=== PATIENT | male | born 1950 | race Caucasian/White ===

== ENCOUNTER → 2016-11-02 | Outpatient (CLI) | payer OTHER, BC | LOC: MOB LAB 12:53 | DX: H65.03 Acute serous otitis media, bilateral (principal); J02.9 Acute pharyngitis, unspecified; R05 Cough; Z87.891 Personal history of nicotine dependence | CPT/HCPCS: 87880; 99213; G0463 ==

== ENCOUNTER → 2016-11-12 | Outpatient (CLI) | payer OTHER, BC ==
[2016-11-12 09:41] LABS: HEMOGLOBIN A1C 8.52 % (4.2-6.0); MEAN BLOOD GLUCOSE (CALC) 197.716 mg/dL
[2016-11-12 09:55] LABS: CREATININE, URINE 168.4 MG/DL (15-500)
== END ==
LOC: LAB 09:12
PROVIDERS: ATTEND Internal Medicine
DX: E11.9 Type 2 diabetes mellitus without complications (principal); Z79.4 Long term (current) use of insulin
CPT/HCPCS: 36415; 82043; 83036

== ENCOUNTER 2016-12-17 09:57 | Observation (INO) | payer OTHER, BC ==
[2016-12-17] MEDS ORDERED: Sodium Chloride 0.9% 1,000 ML PRIMARY IV ONE (10:10)
[2016-12-17] MEDS ORDERED: KETOROLAC 15 MG/1 ML VIAL IVP ONE (10:10)
[2016-12-17] MEDS ORDERED: MORPHINE SULFATE 4 MG/1 ML IVP ONE (10:11)
[2016-12-17] MEDS: NORMAL SALINE 10 ML SYRINGE FLUSH IVP PRN ×2 (10:20→10:29)
--- NOTE | 2016-12-17 10:27 | PDOC ---
Fall HPI - General Chief Complaint: Fall Stated Complaint: FALL 2WEEKS AFTER LUMBAR FUSION Date Seen by Provider: 12/17/16 Time Seen by Provider: 10:10 Source: POSITIVE: Patient, Spouse Exam Limitations: POSITIVE: No limitations Nurse's Notes Reviewed & Considered: Yes - History of Present Illness Initial Comments: The patient is a 66-year-old male who presents to the emergency department with worsening low back pain. He underwent a lumbar fusion surgery per Dr. Woods at [facility] in [place] 2 weeks ago. This was his third lumbar surgery. He was walking with a walker yesterday when he lost his footing and fell landing on his back. Since then he has had increase in localized low back pain. He denies any radiation of pain into his legs, numbness or weakness and he states that he is urinating well "like a racehorse" . He denies any fevers or chills or any other associated symptoms. He has taken 20 mg of oxycodone this morning as well as Valium and his regular piroxicam without any significant improvement in pain. His pain is increased with movement. He denies hitting his head and denies loss of consciousness associated with the fall. He did scrape his elbow however denies any significant elbow pain. He has no other associated symptoms or complaints. Have you received a tetanus shot in the past 10 years?: Unknown - Patient Home Medications Home Medications: Home Medications Aspirin [Ligia Aspirin] 1 tab ORAL QD tab 02/27/11 [place]-3 Fatty Acids/Fish Oil [Fish Oil 1,000 Mg Capsule] 1 each PO BID 04/30/12 Amlodipine Besylate 1 tab PO QHS #90 tab 02/01/16 Blood Sugar Diagnostic [Freestyle Lite Strips] 1 each IN TID #100 strip Fenofibrate [Tricor] 1 tab ORAL QD #90 tab 02/01/16 Hydrochlorothiazide 1 tab ORAL QD #90 tab 02/01/16 Lisinopril 2 tab ORAL QD #180 tab 02/01/16 Ezetimibe [Zetia] 10 mg ORAL QD #90 tab 02/15/16 Metformin HCl 1 tab PO BID #60 tab 07/30/16 Syringe & Needle,Insulin,1 ml [Insulin Syringe] 1 each [facility] #90 each 08/01/16 Insulin Aspart [Novolog Flexpen] 8 - 20 unit SUBCUT AC #4 unit 08/20/16 Insulin Detemir [Levemir Flextouch] 60 unit SQ BIDBRS #6 unit 08/20/16 Pantoprazole Sodium 1 tab PO BID #180 tab 09/02/16 Metoprolol Tartrate 1 tab ORAL BID #90 tab 11/20/16 Diazepam [Valium] 5 mg PO TID PRN 12/17/16 Oxycodone HCl/Acetaminophen [Oxycodone-Acetaminophen 10-325] 1 - 2 each PO Q6H PRN PRN 12/17/16 Rosuvastatin Calcium 40 mg PO BEDTIME 12/17/16 - Patient Allergies Allergies/Adverse Reactions: Allergies Allergy/AdvReac Type Severity Reaction Status Date / Time No Known Allergies Allergy Verified 12/17/16 15:01 Past Medical History - heen HEENT History: Denies History, Cataracts, Dentures/Partials Additional HEENT History: DENTURES UPPER AND LOWER Cardiovascular History: Hypertension, CHF, CAD, PVD, Arrhythmia, Pacemaker, Hyperlipidemia Additional Cardiovasular History: HEART FAILURE, E.F. 43% Respiratory History: Denies History Gastrointestinal History: GERD Additional Gastrointestinal History: Hx of appendectomy Additional Genitourinary History: URGENCY Endocrine History: Type 2 Diabetes (insulin) Musculoskeletal History: Arthritis Prosthesis or Implant: No (BACK FUSION/CHEST) Additional Musculoskeletal History: LUMBAR SPONDYLOSIS Additional Neurological History: CLUSTER HEADACHES WHEN YOUNGER Blood Disorders: Denies History Psychiatric History: Denies History History of Sexually Transmitted Diseases: No Cancer History: Denies History History of MDRO: No History of Other Communicable Diseases: No Alcohol Use: Occasionally Substance Use Type: None Previous Surgical History: Yes Type / Date of Surgery: CORONARY ANGIOGRAM/ CABG/ PACEMAKER/ LUMBAR FUSION X 2 Anesthesia Reactions: No Malignant Hyperthermia: No Significant Family History: Asthma, Diabetes, Hypertension, Renal disease, Vascular disease Past Medical History Reviewed: Reviewed - No Changes ROS - Limitations ROS Limitations: No Limitations Constitution: DENIES: Chills, Fever Cardiovascular: REPORTS: Denies Cardiac Symptoms Respiratory: REPORTS: Denies Resp Symptoms Neurological: REPORTS: Denies Neuro Symptoms. DENIES: Numbness, Weakness Gastrointestinal: REPORTS: Denies GI Symptoms Fall Physical Exam - General Appearance General Appearance: POSITIVE: Alert, Cooperative, No Acute Distress - HEENT HEENT: POSITIVE: Head Inspection Nml - Neck Neck: POSITIVE: Non Tender, Painless ROM, Trachea Midline - Respiratory / CVS Respiratory / CVS: POSITIVE: Chest Non Tender, Breath Sounds Normal, No Respiratory Distress, Heart Sounds Normal, Regular Rate/Rhythm - Abdomen Abdomen: Soft: (All Quadrants), Denies Tenderness: (All Quadrants), No Distention: (All Quadrants) - Skin Skin: POSITIVE: Intact - Back Back: POSITIVE: Other (Examination of his low back reveals a large midline incision with anthony and sutures still in place, there is no drainage from the wound, no surrounding swelling or erythema) - Extremities Extremity Assessment: Normal ROM: (ALL), No Edema: (ALL) Fall Progress - Results Reviewed by me Xrays/CTs/US Reviewed by me: Yes Discussed with Radiologist: Yes Radiology Findings: X-ray of the lumbar spine reveals hardware from recent fusion that appears to be in good position, no acute fracture per radiologist. Lab Results Reviewed: Yes Lab Results:: Laboratory Results 12/17/16 Range/Units 10:26 WBC 6.48 (4.8-10.8) 10^3/uL RBC 3.81 L (4.70-6.10) 10^6/uL Hgb 11.0 L (14.0-18.0) g/dL Hct 32.1 L (42.0-52.0) % MCV 84.3 (80-90) FL MCH 28.9 (27-31) PG MCHC 34.3 (33-37) g/dL RDW Std Deviation 39.8 (39-50) fL RDW Coeff of Monica 13.3 (11.5-14.5) % Plt Count 248 (140-350) 10*3/uL MPV 8.5 (7.4-12.2) FL Immature Gran % (Auto) 0.3 (0-5) % Neut % (Auto) 75.1 (50-80) % Lymph % (Auto) 15.3 (10-50) % Sutton % (Auto) 7.4 (5-15) % Eos % (Auto) 1.7 (0-8) % Baso % (Auto) 0.2 (0-1) % Immature Gran # (Auto) 0.02 10*3/UL Neut # (Auto) 4.87 10*3/UL Lymph # (Auto) 0.99 10*3/uL Sutton # (Auto) 0.48 (0.3-0.8) 10*3/UL Eos # (Auto) 0.11 10*3/UL Baso # (Auto) 0.01 10*3/UL WBC Morphology Comment Normal morphology (NORM) Plt Morphology Comment Normal morphology (NORM) RBC Morph Comment Normal morphology (NORM) Sodium 138 (135-145) meq/L Potassium 4.3 (3.8-5.2) meq/L Chloride 103 (98-112) meq/L Carbon Dioxide 21 L (23-33) meq/L Anion Gap 14 (5-20) BUN 23 H (7-22) mg/dL Creatinine 1.2 (0.70-1.50) mg/dL Estimated GFR > 60 (>60 ml/min/1.73m(2)) BUN/Creatinine Ratio 19.16 (6-20) Glucose 271 H (78-110) mg/dL Calculated Osmolality 299.0 H (267-292) mOsm/kg Calcium 9.3 (8.7-10.7) mg/dL Total Bilirubin 0.7 (0.3-1.2) mg/dL AST 22 (21-57) IU/L ALT 31 (21-72) IU/L Alkaline Phosphatase 86 (38-126) IU/L C-Reactive Protein 3.5 H (0.0-0.9) mg/dL Total Protein 6.5 (6.1-8.0) g/dL Albumin 3.8 (3.5-4.8) g/dL Globulin 2.8 (2.50-4.10) g/dL Albumin/Globulin Ratio 1.30 (1.3-2.0) mg/g - Patient's Progress MDM / ED Course: An IV was established and the patient did receive morphine 4 mg IV, Toradol 15 mg IV and Zofran 4 mg IV for pain. X-rays of the lumbar spine was obtained to check alignment of his recent fusion. This did not reveal any evidence of acute fracture and revealed normal alignment of the hardware. The patient had minimal pain relief with administration of medications however did drop his oxygen saturations and required to be placed on O2 per nasal cannula. I did attempt to contact Dr. Woods who is the neurosurgeon who performed his lumbar fusion. I was able to talk with his physician assistant cook Ricardo. She recommended pain control and stated that the patient does have a follow-up appointment on Friday to see Dr. Woods. I instructed her that I did not feel that he was appropriate to go home given his current degree of pain and his inability to stand. His is also uncomfortable taking him home. She stated it would be reasonable to have him admitted for pain control. I subsequently spoke with Dr. Rose and he agreed to admit the patient. - Consult Counseled: POSITIVE: Patient, Family, RE: Lab Results, RE: Radiology Results, RE : DX Patient Care Time - Estimated PCT Patient Care Time (In Minutes): 40 Vital Signs - Recent Vital Signs Vital Signs: Vital Signs (Last 8 hours) Temp Pulse Pulse Resp BP BP BP 12/17/16 15:06 75 12/17/16 15:05 97.7 F 75 20 146/78 12/17/16 14:44 97.9 F 78 16 131/79 12/17/16 12:25 76 12/17/16 11:25 96/60 12/17/16 11:20 83 92/62 12/17/16 10:50 12/17/16 10:40 12/17/16 10:05 98.2 F 100 16 164/97 Pulse Ox 12/17/16 15:06 12/17/16 15:05 90 12/17/16 14:44 93 12/17/16 12:25 96 12/17/16 11:25 12/17/16 11:20 96 12/17/16 10:50 92 12/17/16 10:40 83 12/17/16 10:05 93 - VS Reviewed Vital Signs Reviewed: Yes Discharge Clinical Impression: Intractable back pain, Status post lumbar spinal fusion Discharge Disposition: Admit to Observation Condition: Stable
[2016-12-17 10:29] LABS: BASOPHILS # (AUTO) 0.01 10*3/UL; BASOPHILS % (AUTO) 0.2 % (0-1); EOSINOPHILS # (AUTO) 0.11 10*3/UL; EOSINOPHILS % (AUTO) 1.7 % (0-8); HEMATOCRIT 32.1 % (42.0-52.0); LYMPHOCYTES # (AUTO) 0.99 10*3/uL; MEAN CORPUSCULAR HEMOGLOBIN 28.9 PG (27-31); MEAN CORPUSCULAR HGB CONC 34.3 g/dL (33-37); MEAN CORPUSCULAR VOLUME 84.3 FL (80-90); MEAN PLATELET VOLUME 8.5 FL (7.4-12.2); MONOCYTES # (AUTO) 0.48 10*3/UL (0.3-0.8); MONOCYTES % (AUTO) 7.4 % (5-15); NEUTROPHILS # (AUTO) 4.87 10*3/UL; NEUTROPHILS % (AUTO) 75.1 % (50-80); RED BLOOD COUNT 3.81 10^6/uL (4.70-6.10)
[2016-12-17] MEDS: ONDANSETRON 4 MG/2 ML VIAL IVP ONE (10:29)
[2016-12-17 10:30] LABS: PLATELET MORPHOLOGY COMMENT NORMAL MORPHOLOGY (NORM); RBC MORPHOLOGY COMMENT NORMAL MORPHOLOGY (NORM); WBC MORPHOLOGY COMMENT NORMAL MORPHOLOGY (NORM)
[2016-12-17 10:41] LABS: BLOOD UREA NITROGEN 23 mg/dL (7-22); BUN/CREATININE RATIO 19.16 (6-20); C-REACTIVE PROTEIN 3.5 mg/dL (0.0-0.9); CALCIUM 9.3 mg/dL (8.7-10.7); EST GLOMERULAR FILTRATION > 60 (>60 ml/min/1.73m(2)); SERUM ALBUMIN 3.8 g/dL (3.5-4.8)
--- NOTE | 2016-12-17 11:55 | DI ---
LUMBAR SPINE SERIES, 12/17/2016 10:11 AM: Clinical History: Injury. The patient fell. The patient is status post recent lumbar fusion. Previous Exam: 03/07/2016. AP and lateral views are submitted. The vertebral bodies are of normal height and size. Since the pre vious exam, the patient has undergone an L5 laminectomy with anterior and posterior fusions at L5-S1 as well as repeat anterior fusion at L4-5. There is an L4 laminectomy. Posterior fusions are accompli shed with metallic struts that are transfixed with pedicle screws between L4 and S1 on the right side and with pedicle screws between L5 and S1 on the left side. No acute fractures are identified. On th e lateral view, the cages at L4-5 and L5-S1 are in the appropriate position. The remaining lumbar dis c spaces are of normal height. The remaining pedicles and posterior elements are unremarkable. Both S I joints are normal. The abdominal aorta is heavily calcified but has a normal caliber. Vascular sten ts are present in the left common iliac artery. Readin. No acute fractures are identified. The patient is status post recent repeat lumbar surgery at the L4-5 level and new surgery at L5-S1 and skin anthony are still present at the surgical site. The ant erior bone graft cages at L4-5 and L5-S1 have a normal position on the lateral projection. The patien t is status post L4 and L5 laminectomies. Pedicle screws and metallic struts are in the appropriate p osition. 2. The remainder of the examination is normal.
--- NOTE | 2016-12-17 13:57 | PDOC ---
History and Physical - History of Present Illness Date and Time of Service: 12/17/2016 Chief Complaint: Worsening low back pain after a fall History of Present Illness: This is a 66 years old male with medical history significant for history of diabetes, hypertension, congestive heart failure with previous AICD insertion, coronary artery disease with previous CABG he had 3 previous back surgeries, the last one about 2 weeks ago at [facility] in [place]. He was walking yesterday with a walker and he lost his footing and fell landing on his buttock. He said he was able to get up with help but had worsening pain especially today and because of that they brought him to the hospital. The pain felt in the same area but it's more intense this morning. There is no significant radiations. Because of the pain and decreased mobility he was brought to the hospital and in the ER he was the given pain medication that lowered his pain a little bit had an x-ray showed no evidence of fracture this was discussed with the PA for the orthopedic surgeon and because his pain is uncontrolled and restricted mobility he was admitted . He did have a slight drop in his oxygen after they gave him the morphine. He did mention that he's been constipated and last time he had a bowel movement was Friday. He has some incontinence of urine since the surgery. Past Medical History Medical History: 1. Diabetes. 2. Hypertension. 3. Coronary artery disease status post CABG in 2001. 4. Hyperlipidemia. 5. Peripheral vascular disease. 6. Obstructive sleep apnea. 7. Heart failure ejection fraction of 43% 2003. 8. History of pacemaker AICD insertion before Surgical History: 1. CABG 2001. 2. Vertebral fusion. 3. Pacemaker/AICD Family History: Reviewed an Not Pertinent Past Social History: Used to smoke quit many years ago, occaionally drink, no drugs. Lives with . Tobacco Use: Former Smoker Substance Use Type: None Alcohol Use: Occasionally Medication / Allergies Home Medications: Home Medications Medication Instructions Recorded Confirmed Type Aspirin [Ligia Aspirin] 1 tab ORAL QD tab 02/27/11 12/17/16 History [place]-3 Fatty Acids/Fish Oil [Fish 1 each PO BID 04/30/12 12/17/16 History Oil 1,000 Mg Capsule] Amlodipine Besylate 1 tab PO QHS #90 tab 02/01/16 12/17/16 Clinic Blood Sugar Diagnostic [Freestyle 1 each IN TID #100 strip 02/01/16 12/17/16 Clinic Lite Strips] Fenofibrate [Tricor] 1 tab ORAL QD #90 tab 02/01/16 12/17/16 Clinic Hydrochlorothiazide 1 tab ORAL QD #90 tab 02/01/16 12/17/16 Clinic Lisinopril 2 tab ORAL QD #180 tab 02/01/16 12/17/16 Clinic Ezetimibe [Zetia] 10 mg ORAL QD #90 tab 02/15/16 12/17/16 Clinic Metformin HCl 1 tab PO BID #60 tab 07/30/16 12/17/16 Clinic Syringe & Needle,Insulin,1 ml 1 each [facility] AC #90 each 08/01/16 12/17/16 Clinic [Insulin Syringe] Insulin Aspart [Novolog Flexpen] 8 - 20 unit SUBCUT AC #4 unit 08/20/16 Clinic Insulin Detemir [Levemir Flextouch] 60 unit SQ BIDBRS #6 unit 08/20/16 12/17/16 Clinic Pantoprazole Sodium 1 tab PO BID #180 tab 09/02/16 12/17/16 Clinic Metoprolol Tartrate 1 tab ORAL BID #90 tab 11/20/16 12/17/16 Clinic Diazepam [Valium] 5 mg PO TID PRN 12/17/16 12/17/16 History Oxycodone HCl/Acetaminophen 1 - 2 each PO Q6H PRN PRN 12/17/16 12/17/16 History [Oxycodone-Acetaminophen 10-325] Rosuvastatin Calcium 40 mg PO BEDTIME 12/17/16 12/17/16 History Allergies/Adverse Reactions: Allergies Allergy/AdvReac Type Severity Reaction Status Date / Time No Known Allergies Allergy Verified 12/18/16 06:35 Review of Systems - Review of Systems All Systems: Reviewed & No Additional Complaints Except as Stated Exam - General General Appearance: POSITIVE: No Acute Distress, Cooperative, Thin, Obese - Head Head Exam: POSITIVE: Normal Inspection, Atraumatic - Eye Eye Exam: POSITIVE: Normal Appearance - ENT ENT Exam: POSITIVE: Normal Exam - Neck Neck Exam: POSITIVE: Normal Inspection - Respiratory Respiratory Exam: POSITIVE: Clear to Auscultation - Bilaterally - Cardiovascular Cardiovascular Exam: POSITIVE: RRR - GI/Abdominal GI/Abdominal Exam: POSITIVE: Normal Bowel Sounds, Non Tender, Non Distended, Soft - Rectal Rectal Exam: POSITIVE: Deferred - External Exam: POSITIVE: Deferred - Extremities Extremities Exam: POSITIVE: Normal Inspection - Back Additional Back Exam Details: The wound of his back looks clean - Neurological Neurological Exam: POSITIVE: Alert, Oriented x 3, CN II-XII Intact Additional Neurological Exam Details: motor strength assessment is restricted because of pain - Psychiatric Psychiatric Exam: POSITIVE: Normal Affect - Integumentary Integumentary Exam: POSITIVE: Normal Color Results - Labs CBC and BMP: 12/17/16 10:26 12/17/16 10:26 - Imaging Status: Report Reviewed by Me (X ray no fracture) Assessment and Plan - Patient Problems (1) Back pain Current Visit: Yes Status: Acute Comment: We'll put him on pain medications, will ask for PT and OT evaluation the morning. The ER physician tried to get hold of his surgeon but could not get hold of him we'll try to see if we can get hold of him and see if he suggest more testing. (2) Diabetes Current Visit: Yes Status: Acute Comment: Will puts him on the his usual medications and on sliding scale (3) Coronary artery disease Current Visit: Yes Status: Acute Comment: Continue previous medications (4) Hypercholesterolemia Current Visit: Yes Status: Acute Comment: Same med (5) DVT prophylaxis Current Visit: Yes Status: Acute Comment: will put him on SCD boots for now Photo / Body Diagrams - Uploaded Photos Uploaded Photos:
[2016-12-17] MEDS ORDERED: NORMAL SALINE 10 ML SYRINGE FLUSH IVP PRN (15:29)
[2016-12-17] MEDS ORDERED: LIDOCAINE W/ SODIUM BICARB 0.5 ML SYR SUBD PRN (15:29)
[2016-12-17] MEDS ORDERED: MORPHINE SULFATE 2 MG/1 ML IVP PRN (15:42)
[2016-12-17] MEDS: oxyCODONE/APAP 10/325 Tab 1 EACH TAB PO PRN ×2 (16:59→20:40)
[2016-12-17] MEDS: Insulin Lispro Flexpen 300 UNIT/3 ML INSULN.PEN SUBCUT SCH (16:59)
[2016-12-17] MEDS: DIAZEPAM 5 MG TABLET PO PRN (17:00)
[2016-12-17] MEDS: metFORMIN 500 MG TABLET PO SCH (20:54)
[2016-12-17] MEDS: PANTOPRAZOLE 40 MG TABLET PO SCH (20:54)
[2016-12-17] MEDS: Rosuvastatin Tab 20 MG TAB PO SCH (20:54)
[2016-12-17] MEDS: DOCUSATE 100 MG CAPSULE PO SCH (20:55)
[2016-12-17] MEDS: Metoprolol TARTRATE Tab 50 MG TAB PO SCH (20:55)
[2016-12-17] MEDS: Insulin Detemir 300unit/3ml Flexpen SUBCUT SCH (20:55)
[2016-12-18] MEDS: DIAZEPAM 5 MG TABLET PO PRN (02:17)
[2016-12-18] MEDS: oxyCODONE/APAP 10/325 Tab 1 EACH TAB PO PRN ×4 (02:17→20:22)
[2016-12-18] MEDS: Insulin Lispro Flexpen 300 UNIT/3 ML INSULN.PEN SUBCUT SCH ×3 (09:05→17:36)
[2016-12-18] MEDS: ASPIRIN 325 MG TABLET PO SCH (09:06)
[2016-12-18] MEDS: metFORMIN 500 MG TABLET PO SCH ×2 (09:06→20:21)
[2016-12-18] MEDS: PANTOPRAZOLE 40 MG TABLET PO SCH ×2 (09:06→20:23)
[2016-12-18] MEDS: FENOFIBRATE 145 MG TABLET PO SCH (09:06)
[2016-12-18] MEDS: Metoprolol TARTRATE Tab 50 MG TAB PO SCH ×2 (09:06→20:22)
[2016-12-18] MEDS: LISINOPRIL 20 MG TABLET PO SCH (09:06)
[2016-12-18] MEDS: DOCUSATE 100 MG CAPSULE PO SCH ×2 (09:07→20:22)
[2016-12-18] MEDS: HYDROCHLOROTHIAZIDE 25 MG TABLET PO SCH (09:07)
[2016-12-18] MEDS: EZETIMIBE 10 MG TABLET PO SCH (09:07)
[2016-12-18] MEDS: POLYETHYLENE GLYCOL 3350 17 GM POWDER PO SCH (09:07)
[2016-12-18] MEDS: Insulin Detemir 300unit/3ml Flexpen SUBCUT SCH ×2 (09:08→20:40)
--- NOTE | 2016-12-18 09:26 | PTI REPORT ---
Thank you for the referral of Bj Mo. He was seen on 12/17/16 for an inpatient evaluation secondary to back pain. SUBJECTIVE: The patient is a 66-year-old male who was admitted to the hospital for pain control. He is two weeks post op low back procedure from [facility]. The exact type of procedure is unknown and was unable to be found in the records currently available. We will try to find out more information from [place]. The patient is complaining of low back pain and left hip and leg pain after his fall. He states he was on his way to the bathroom with his walker when it slipped out from under him and he landed on his butt. He states he has been having increased pain since that period of time. The patient is currently on pain medication so some of his responses probably are delayed and biased with his medicine. The patient states he has a back brace at home and a walker at home; neither are present in his room. PAST MEDICAL HISTORY: Past medical history can be found in the patient's medical record. OBJECTIVE FINDINGS: General observations: The patient's incisions are benign. There are anthony and sutures present with no drainage at this point. Range of motion/Strength: The patient demonstrates full active range of motion of both shoulders with 5/5 for strength. The patient demonstrates right lower extremity recreating back pain with any kind of hip movements. Knee and ankle range of motion are within normal limits. Left lower extremity had a positive leg raise at approximately 45 degrees and active movements of that lower extremity did increase his low back pain moderately. Bed mobility: With enough time, the patient was able to transfer from supine to seated with minimal assist of one. Transfers: The patient was able to transfer from sit to stand with the use of a walker, which we will provide. ASSESSMENT: The patient has increased low back pain from a fall. He is two weeks post op a large back surgery, a possible fusion or other procedure, which is unknown to us at this point. He has been admitted for pain control. He obviously needs help with transfers, ambulation activities, self help skills, and mobility. He is a high risk for falling. Short-Term Goals: To be met by discharge from inpatient: Patient will have a pain level less than or equal to 5/10 with activity. Patient will be able to perform all bed mobility and transfers independently and safely. Patient will be able to ambulate 200 feet with least restrictive assistive device. Long-Term Goals: To be met following discharge from inpatient: Patient will be able to return home, independent and safe with all ADLs and functional transfers. TREATMENT PLAN: Patient will be seen B.I.D during the week and one time per day over the weekend as an inpatient for pain control modalities, transfer training, and strengthening of the lower extremities and upper extremities. INITIAL TREATMENT: Treatment today consisted of the initial evaluation activities only. ABRAHAM
--- NOTE | 2016-12-18 14:32 | PDOC(PROG) ---
Interval History: Patient still in pretty moderate to severe pain in his lower back and both legs. Apparently he is been incontinent of urine since yesterday according to the patient and nurse x-ray did not show any abnormalities he has some numbness in both of his legs posteriorly on physical exam he does feel me touching the posterior buttocks lower legs and legs Objective : Data - Labs CBC and BMP: 12/17/16 10:26 12/17/16 10:26 Objective : Exam - General General Appearance: Cooperative - Respiratory Respiratory Exam: Clear to Auscultation - Bilaterally, Breathing Non Labored, Normal To Percussion - Cardiovascular Cardiovascular Exam: RRR, No Murmur, No Clicks, No Gallops - GI/Abdominal GI/Abdominal Exam: Normal Bowel Sounds, Non Tender, Non Distended, Soft - Additional Exam Details: Patient has good sensation and posterior buttocks legs and in front of his legs - Neurological Neurological Exam: Alert, Oriented x 3, Moves All Extremities Equally - Psychiatric Psychiatric Exam: Normal Affect Assessment and Plan - Patient Problems (1) Urinary incontinence Current Visit: Yes Status: Acute Comment: Good sensation on physical exam I'll order a CT scan of his thoracic and lumbar spine make sure there is no hematomas or abscesses compressing depending on the results we'll contact the neurosurgeon that operated on him 2 weeks ago to share my information continue PTOT and pain management (2) Back pain Current Visit: Yes Status: Acute (3) Intractable back pain Current Visit: Yes Status: Acute Comment: IV narcotics Photo / Body Diagrams - Uploaded Photos Uploaded Photos:
--- NOTE | 2016-12-18 16:29 | PT.PROG ---
Progress Note Progress Note: S. Patient stated that he is in a lot of pain this morning and would like to get back in bed. O. Patient transferred from sit to stand then ambulated 10 feet to the bed where he was performed stand to supine transfer with log roll. Patient was left with alarm and call light. A. Patient required max verbal cues to use the walker properly and to stand tall during ambulation. Patient appeared to be struggling with weakness in his legs and his knees appeared to give out on him during ambulation. Patient required mod assist with transfers and ambulation. Patient would continue to benefit from skilled therapy to increase strength, mobility and endurance. P. Continue POC.
--- NOTE | 2016-12-18 16:35 | PT.PROG ---
Progress Note Progress Note: S. Patient stated that he is feeling better this afternoon and would like to go to therapy. O. Patient ambulated 15 feet to the wheelchair and was wheeled to the therapy gym where he ambulated 5 feet and transferred to the mat table where he had heat to his back x 25 minutes, then performed supine exercises in the form of; trunk rotations, pelvic tilts, heel slides,quad sets. Patient performed sit to stands x 3 then ambulated 20 feet to the wheelchair and was returned to his room where he was left in bed with alarm and call light. A. Patient continues to struggle with weakness, and requires min-mod assist with transfers and ambulation. He continues to require verbal cues to use the walker properly. Patient would continue to benefit from skilled therapy at this time. P. Continue POC.
[2016-12-18] MEDS: Rosuvastatin Tab 20 MG TAB PO SCH (20:22)
--- NOTE | 2016-12-18 20:30 | DI ---
CT THORACIC SPINE SCAN WITH IV CONTRAST, 12/18/2016 1:54 PM : Clinical History: Urinary incontinence with multiple episodes of falling since recent lumbar spine junior rgery 2 weeks ago. This history was furnished by the attending hospitalist physician. Previous Exam: None at this facility. Scans are obtained from C5 to T12 with IV contrast. Sagittal and coronal reformatted images are gener ated. 70 ml of Isovue 300 was injected IV. The vertebral bodies are of normal height and size. The disc spaces are normal in height. Posterior a lignment and posterior elements are normal. Pedicles are normal. Paravertebral soft tissue planes are normal. High resolution thin slices through the disc spaces show no disc herniations or significantl y bulging discs. There is no canal or neural foraminal stenosis. No abnormally enhancing lesions are identified. Reading: Normal CT thoracic spine scan with IV contrast. CT LUMBAR SPINE SCAN WITH IV CONTRAST, 12/18/2016 1:54 PM : Clinical History: See above. Previous Exam: 03/07/2016. This was a CT scan of the lumbar spine with intrathecal contrast. Scans are obtained from T12 to S4 with IV contrast. This is the same bolus of contrast used for the CT scan of the thoracic spine described above. Sagittal and coronal reformatted images are generated. The vertebral bodies are of normal height and size. The patient is status post laminectomies from L4- S1 with anterior and posterior fusions at L4-5 and L5-S1. The anterior fusion at L4-5 has 2 bone roland t cages in the left bone graft cage protrudes slightly posteriorly into the canal. A single bone roland t cage is present in the anterior fusion at L5-S1. Posterior fusions are present at L4-5 and L5-S1 an d metallic struts transfixed with pedicle screws on the right side between L4 and S1 and on the left side between L5 and S1. Bone grafts are also present posteriorly. Surgical skin anthony are still pre sent in the midline over lower back region. The T12-L1 disc space is normal. L1-2 and L2-3 has minima l bulging but not herniated discs without canal or neural foraminal stenosis. L3-4 also has a circumf erentially bulging but not herniated disc without canal or neural foraminal stenosis. L4-5 shows enha ncement corresponding to the thecal sac without evidence of a recurrent disc herniation. There is no canal or neural foraminal stenosis L5-S1 shows extensive scan artifact secondary to the metallic hard gaines. There is no canal or neural foraminal stenosis. Bone grafts have been inserted bilaterally in a fashion to encase the posterior and lateral margins of the metallic struts and pedicle screws. There is a low-density collection located posterior to the bone grafts and beginning at the level of the L 3-4 disc space and extending inferiorly to the L5-S1 disc space. The posterior perimeter of this low density material is associated with a syndrome of bone graft material. This low density material exte nds superiorly from the level of the L4 vertebral body and extends to the uppermost skin sutures. The re is no enhancement of the perimeter of this low density material in this is felt to represent eithe r a postoperative hematoma/seroma or a pseudomeningocele. This presumed fluid collection has a maximu m transverse dimension of 32 x 102 mm in AP and transverse dimension with an estimated longitudinal d imension of 100 mm. This longitudinal length excludes the portion that extends to the superior aspect of the surgical incision. The L4-5 fusion appears solid. The L5-S1 fusion is not solid. There is a 1 6 mm soft tissue enhancing lesion of the right adrenal gland. This patient had a CT myelogram that sh owed the lesion was of greater than water density but lower in density compared to the postcontrast C T scans performed today. Readin. Status post laminectomies from L4-S1 with anterior and posterior fusions at L4-5 and L5-S1. The L 4-5 fusion anteriorly is solid. The L5-S1 fusion anteriorly is not solid. There is what either repres ents a postoperative hematoma/seroma or a pseudomeningocele located posterior to the L4-L5 vertebral bodies. An extension of this presumed fluid ascends superiorly and posteriorly from the L4 vertebral body to the superior aspect of the surgical incision. There is no canal stenosis or neural foraminal stenosis at L4-5 or L5-S1 and there is no evidence of a recurrent disc herniation at either level. 2. There are bulging but not herniated discs without canal or neural foraminal stenosis from L1-2 th rough L3-4 with a normal disc space at T12-L1. 3. 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
[2016-12-19] MEDS: oxyCODONE/APAP 10/325 Tab 1 EACH TAB PO PRN (00:11)
[2016-12-19] MEDS: Insulin Lispro Flexpen 300 UNIT/3 ML INSULN.PEN SUBCUT SCH ×2 (06:29→11:04)
[2016-12-19] MEDS ORDERED: ONDANSETRON 4 MG/2 ML VIAL IVP PRN (09:00)
[2016-12-19] MEDS ORDERED: ONDANSETRON 4 MG/2 ML VIAL ONE (09:04)
[2016-12-19] MEDS: ONDANSETRON 4 MG/2 ML VIAL IVP ONE (09:09)
[2016-12-19] MEDS: Insulin Detemir 300unit/3ml Flexpen SUBCUT SCH (09:09)
[2016-12-19] MEDS: LISINOPRIL 20 MG TABLET PO SCH (10:55)
[2016-12-19] MEDS: FENOFIBRATE 145 MG TABLET PO SCH (10:55)
[2016-12-19] MEDS: Metoprolol TARTRATE Tab 50 MG TAB PO SCH (10:56)
[2016-12-19] MEDS: EZETIMIBE 10 MG TABLET PO SCH (10:56)
[2016-12-19] MEDS: HYDROCHLOROTHIAZIDE 25 MG TABLET PO SCH (10:56)
[2016-12-19] MEDS: ASPIRIN 325 MG TABLET PO SCH (10:56)
[2016-12-19] MEDS: PANTOPRAZOLE 40 MG TABLET PO SCH (10:56)
[2016-12-19] MEDS: metFORMIN 500 MG TABLET PO SCH (10:56)
[2016-12-19] MEDS: DOCUSATE 100 MG CAPSULE PO SCH (10:57)
[2016-12-19] MEDS: POLYETHYLENE GLYCOL 3350 17 GM POWDER PO SCH (11:04)
--- NOTE | 2016-12-19 11:29 | DCSUMMARY ---
Hospitalization Summary Hospital Course: Final Discharge Diagnosis: Diagnostic Data, Laboratory Data, and Procedures of Signifigance: History and Physical pertinent to Admission: Past Medical History Medical History: 1. Diabetes. 2. Hypertension. 3. Coronary artery disease status post CABG in 2001. 4. Hyperlipidemia. 5. Peripheral vascular disease. 6. Obstructive sleep apnea. 7. Heart failure ejection fraction of 43% 2003. 8. History of pacemaker AICD insertion before Surgical History: 1. CABG 2001. 2. Vertebral fusion. 3. Pacemaker/AICD Family History: Reviewed an Not Pertinent Past Social History: Used to smoke quit many years ago, occaionally drink, no drugs. Lives with . Tobacco Use: Former Smoker Substance Use Type: None Alcohol Use: Occasionally Medication / Allergies Home Medications: Home Medications Medication Instructions Recorded Confirmed Type Aspirin Ligia Aspirin 1 tab ORAL QD tab 02/27/11 12/17/16 History [place]-3 Fatty Acids/Fish Oil Fish 1 each PO BID 04/30/12 12/17/16 History Oil 1,000 Mg Capsule Amlodipine Besylate 1 tab PO QHS #90 tab 02/01/16 12/17/16 Clinic Blood Sugar Diagnostic Freestyle 1 each IN TID #100 strip 02/01/16 12/17/16 Clinic Lite Strips Fenofibrate Tricor 1 tab ORAL QD #90 tab 02/01/16 12/17/16 Clinic Hydrochlorothiazide 1 tab ORAL QD #90 tab 02/01/16 12/17/16 Clinic Lisinopril 2 tab ORAL QD #180 tab 02/01/16 12/17/16 Clinic Ezetimibe Zetia 10 mg ORAL QD #90 tab 02/15/16 12/17/16 Clinic Metformin HCl 1 tab PO BID #60 tab 07/30/16 12/17/16 Clinic Syringe & Needle,Insulin,1 ml 1 each AC #90 each 08/01/16 12/17/16 Clinic Insulin Syringe Insulin Aspart Novolog Flexpen 8 - 20 unit SUBCUT AC #4 unit 08/20/16 12/17/16 Clinic Insulin Detemir Levemir Flextouch 60 unit SQ BIDBRS #6 unit 08/20/16 12/17/16 Clinic Pantoprazole Sodium 1 tab PO BID #180 tab 09/02/16 12/17/16 Clinic Metoprolol Tartrate 1 tab ORAL BID #90 tab 11/20/16 12/17/16 Clinic Diazepam Valium 5 mg PO TID PRN 12/17/16 12/17/16 History Oxycodone HCl/Acetaminophen 1 - 2 each PO Q6H PRN PRN 12/17/16 12/17/16 History Oxycodone-Acetaminophen 10-325 Rosuvastatin Calcium 40 mg PO BEDTIME 12/17/16 12/17/16 History Course of Hospitalization: This very nice 66-year-old male with past medical history significant for hypertension, diabetes, congestive heart failure with previous AICD and coronary artery disease with CABG. An previous 3 back surgeries. The last surgery he has was about 2 weeks ago and [facility] by Dr. Woods according to his family's been falling at home but 2 days before admission he lost his food footing while walking with a walker and fell and landed on his buttock on his buttocks but he continued to have worsening pain and was brought to the ER because of his pain and decreased mobility he was admitted to the hospital for pain control he had an x-ray of his lower back which showed no fractures and the case was discussed with the PAs with the orthopedic surgeons PAs at that time by Dr. Martinez and also complaining of some incontinence of urine since the surgery. On my examination the patient said he had some mild pain in his lower back which radiated down both legs but cannot have any numbness or my physical exam of his buttocks inner thighs and lower back legs he does have incontinence of urine therefore I ordered a CT scan of his thoracic and lumbar spine I've talked to Dr. Woods. His neurosurgeon and films were pushed via packs to [facility] after discussion because of his urinary incontinence and possibility of epidural hematoma Dr. oWods would like the patient to be transferred to [facility] for further workup and evaluation and possibly rehabilitation I have agreed with him I talked to the patient and family members which are all in agreement. His metformin was held because of his CT scans On the date of discharge, the patient was examined: Gen.: No acute distress, alert, nontoxic Heart: Regular rate and rhythm, no murmurs, clicks, gallops, or rubs Lungs: Clear to auscultation bilaterally, breathing is nonlabored Abdomen/GI: Normal tones on auscultation, soft, nontender, nondistended Musculoskeletal/extremities: No clubbing, cyanosis, or edema Vitals reviewed and are listed below Vital Signs (24 hrs) Temp Pulse Resp BP Pulse Ox 12/19/16 09:01 98.2 F 67 14 140/80 95 12/19/16 08:02 98.2 F 67 16 140/80 95 12/19/16 05:35 94 12/19/16 05:00 98.7 F 70 18 141/78 97 12/19/16 00:46 97.1 F 73 20 145/89 95 12/18/16 20:54 98.4 F 73 20 132/77 94 12/18/16 19:00 73 12/18/16 16:44 97.7 F 73 20 126/71 93 12/18/16 15:00 92 12/18/16 11:36 98.4 F 69 20 112/88 92 Assessment and Plan: 1. As per discharge assessments above 2. Disposition: Transferred to [facility] by Dr. Woods 3. Condition on discharge, stable and improved. 4. Diet: regular diet 5. Activities: resume normal activities 6. Follow-Up: 1. PCP 2. 7. Medications at the Time of Discharge: Active Medications Generic Name Dose Route Start Last Admin Trade Name Freq PRN Reason Stop Dose Admin Amlodipine Besylate 10 mg 12/17/16 21:00 12/18/16 20:22 Norvasc PO 10 mg BEDTIME REBECCA Administration Aspirin 325 mg 12/18/16 09:00 12/19/16 10:56 Aspirin PO 325 mg DAILY REBECCA Administration Diazepam 5 mg 12/17/16 15:32 12/18/16 02:17 Valium PO 5 mg TID PRN Administration BACK SPASM Docusate Sodium 100 mg 12/17/16 21:00 12/19/16 10:57 Colace PO 100 mg BID REBECCA Administration Ezetimibe 10 mg 12/18/16 09:00 12/19/16 10:56 Zetia PO 10 mg DAILY REBECCA Administration Fenofibrate 145 mg 12/18/16 09:00 12/19/16 10:55 Tricor PO 145 mg DAILY REBECCA Administration Hydrochlorothiazide 25 mg 12/18/16 09:00 12/19/16 10:56 Hydrodiuril PO 25 mg DAILY REBECCA Administration Sodium Chloride 25 mls @ 200 mls/hr 12/17/16 15:29 Normal Saline 0.9% IV .Post Infusion PRN No Primary IV for Flush ONLY Insulin Detemir 60 unit 12/17/16 21:00 12/19/16 09:09 Levemir Flexpen Inj SUBCUT 60 unit BID REBECCA Administration Insulin Human Lispro 0 - 12 unit 12/17/16 16:30 12/19/16 11:04 Humalog Flexpen Inj SUBCUT Not Given [facility] Protocol Lidocaine HCl 0.5 ml 12/17/16 15:29 Lidocaine Buffered Inj SUBD ONCE PRN IV Starts Lisinopril 80 mg 12/18/16 09:00 12/19/16 10:55 Prinivil PO 80 mg DAILY [facility] Administration Metformin HCl 1,000 mg 12/17/16 21:00 12/19/16 10:56 Glucophage Tab PO Not Given BID [facility] Metoprolol Tartrate 50 mg 12/17/16 21:00 12/19/16 10:56 Lopressor Tab PO 50 mg BID REBECCA Administration Morphine Sulfate 2 mg 12/17/16 15:42 Morphine Inj IVP Q2H PRN Pain Ondansetron HCl 4 mg 12/19/16 09:00 Zofran Inj IVP Q6H PRN NAUSEA Oxycodone/Acetaminophen 1 - 2 each 12/17/16 15:32 12/19/16 00:11 Percocet 10/325 Tab PO 2 each Q4H PRN Administration Back Pain Pantoprazole Sodium 40 mg 12/17/16 21:00 12/19/16 10:56 Protonix PO 40 mg BID REBECCA Administration Polyethylene Glycol 17 gm 12/18/16 09:00 12/19/16 11:04 Miralax Packet PO 17 gm DAILY REBECCA Administration Rosuvastatin Calcium 40 mg 12/17/16 21:00 12/18/16 20:22 Crestor PO 40 mg BEDTIME REBECCA Administration Sodium Chloride 5 - 20 ml 12/17/16 10:10 12/17/16 10:29 Saline Flush IVP 10 ml ONCE (ED) PRN Administration Flush Sodium Chloride 5 - 20 ml 12/17/16 15:29 Saline Flush IVP BID PRN Flush 8. Time, care, counseling and coordination of care for this discharge is greater than 30 minutes. Exam - Vitals Vital Signs: Vital Signs Temperature 98.2 F Temperature Source Oral Pulse Rate [Pulse Oximeter] 67 Pulse Rate 78 Respiratory Rate 14 Blood Pressure [RT ARM] 160/91 Blood Pressure [Left Arm] 140/80 Blood Pressure 131/79 Pulse Ox 95 Oxygen Flow Rate 1 Oxygen Delivery Method Room Air Height 6 ft Weight 103.419 kg Patient Problems - Patient Problem List (1) Urinary incontinence Current Visit: Yes Status: Acute (2) Back pain Current Visit: Yes Status: Acute (3) Intractable back pain Current Visit: Yes Status: Acute
--- NOTE | 2016-12-19 11:48 | PT.PROG ---
Progress Note Progress Note: S. Patient stated that he is feeling better today. He reports that his right leg feels different than his left leg "almost as if someone hit his leg." O. Patient ambulated 30 feet around his room and was left in his chair with alarm and call light. A. Patient tolerated ambulation better today compared to previous treatments, he continues to have weakness in his legs and struggles with pain in his back. Patient would continue to benefit from skilled care to increase strength, mobility and endurance. P. Continue POC.
[2016-12-19 12:31] VITALS: RESP 16; TEMP 98.1
--- NOTE | 2016-12-20 15:49 | OT AM DAY ---
Diagnosis : Back Pain AM - Occupational Therapy S: The patient's nurse and Dr. Seals were in the room when the therapist arrived. Dr. Seals was worried about the patient's pain medication affecting his cognition and alertness levels. We were to do minimal activity with the patient this morning. O: The patient was a little more alert today than yesterday. His nurse reports that the patient had not had pain medication since midnight. The patient was not nearly as groggy. He was able to follow one step commands and was able to try to follow them today. The patient was able to come from supine to sit with min assist. Once sitting edge of bed the patient had increased ability to keep his posture. Yesterday the patient had a lot of balance difficulties at edge of bed; today he needed stand by to mainly contact guard assist. There was one time he needed min assist to keep his balance but he was much more alert in order to stay sitting edge of bed. The patient remembered how to use the filter worker and was able to do that appropriately in order to get shorts from foot to thigh level. When completing sit to stands, the patient needed mod assist to come from sit to stand. Once standing the patient needed contact guard assist for balance but was able to bring shorts to waist level. The patient was issued a bath sponge, a long handled shoe horn, and a sock aide for independence. The patient needed demonstration for the sock aide and required mod assist to don socks, but thought it would be a good idea to use this secondary to his back precautions. He also needed min assist to get to the sink and he stood at the sink x4 minutes to complete hygiene activities. He then transferred back to chair with max verbal cues in order to move his arms to reach the armed chair. A: The patient does have some impulsivity and some possible cognitive deficits. This may also be contributed to his pain medications. We will continue to assess. The patient may need a cognitive assessment at some point. P: Continue seeing patient BID during the week and one time per day over the weekend for upper extremity strengthening, ADLs, and overall functional mobility. ABRAHAM
== END 2016-12-19 15:47 | disposition short-term general hospital (02) ==
LOC: ER 09:57 → MED/SURG 13:10
PROVIDERS: ADMIT Internal Medicine; ATTEND Internal Medicine
DX: M54.5 Low back pain (principal); R32 Unspecified urinary incontinence; W18.39XA Other fall on same level, initial encounter; W17.89XA Other fall from one level to another, initial encounter; Z98.890 Other specified postprocedural states; E11.9 Type 2 diabetes mellitus without complications; I25.10 Atherosclerotic heart disease of native coronary artery without angina pectoris; E78.00 Pure hypercholesterolemia, unspecified
CPT/HCPCS: 72100; 72129; 72132; 80053; 82948 ×3; 85025; 86140; 94761 ×2; 96374 ×2; 96375; 97110 ×2; 97161; 97530 ×4; 97535; 99284 ×2; J1815 ×2; J1885; J2270; J2405; J7030

== ENCOUNTER → 2017-01-16 | Outpatient (CLI) | payer OTHER, BC ==
[2017-01-16 15:32] LABS: BILIRUBIN,URINE NEGATIVE (NEG); COLOR,URINE YELLOW; NITRATE,URINE NEGATIVE (NEG); OCCULT BLOOD,URINE NEGATIVE (NEG); PROTEIN,URINE NEGATIVE (NEG); UROBILINOGEN,URINE 0.2 mg/dL (0.2)
[2017-01-16 15:38] LABS: CLARITY,URINE CLEAR (CLEAR); GLUCOSE, URINE (UA) >=1000 mg/dL (NEG)
[2017-01-16 15:43] LABS: RBC,URINE 0-3 /hpf; URINE CASTS FEW; URINE SAMPLE TYPE CLEAN CATCH URINE; WBC,URINE 0-3
== END ==
LOC: MOB LAB 11:33
PROVIDERS: ATTEND Nurse Practitioner
DX: Z09 Encounter for follow-up examination after completed treatment for conditions other than malignant neoplasm (principal); R35.1 Nocturia; Z98.1 Arthrodesis status
CPT/HCPCS: 81001; 99213; G0463

== ENCOUNTER → 2017-02-12 | Outpatient (CLI) | payer OTHER, BC ==
[2017-02-12 08:57] LABS: HEMOGLOBIN A1C 8.63 % (4.2-6.0)
[2017-02-12 09:16] LABS: BLOOD UREA NITROGEN 18 mg/dL (7-22); CALCIUM 9.8 mg/dL (8.7-10.7); CHOL/HDL RATIO 5.74 RATIO (0-4.0); EST GLOMERULAR FILTRATION > 60 (>60 ml/min/1.73m(2)); HDL CHOLESTEROL 31 mg/dL (40-150); SERUM ALBUMIN 4.3 g/dL (3.5-4.8); SERUM CHOLESTEROL 178 mg/dL (120-200)
[2017-02-12 09:21] LABS: CREATININE, URINE 90.8 MG/DL (15-500)
== END ==
LOC: LAB 08:33
PROVIDERS: ATTEND Internal Medicine
DX: E11.9 Type 2 diabetes mellitus without complications (principal); Z79.4 Long term (current) use of insulin; E78.5 Hyperlipidemia, unspecified; I10 Essential (primary) hypertension
CPT/HCPCS: 36415; 80053; 80061; 82043; 82550; 83036

== ENCOUNTER → 2017-04-15 | Outpatient (CLI) | payer OTHER, BC ==
[2017-04-15 07:52] LABS: CREATININE, URINE 63.3 MG/DL (15-500)
[2017-04-15 07:57] LABS: BLOOD UREA NITROGEN 16 mg/dL (7-22); CALCIUM 9.6 mg/dL (8.7-10.7); CHOL/HDL RATIO 2.81 RATIO (0-4.0); EST GLOMERULAR FILTRATION > 60 (>60 ml/min/1.73m(2)); HDL CHOLESTEROL 37 mg/dL (40-150); SERUM CHOLESTEROL 104 mg/dL (120-200)
[2017-04-15 08:10] LABS: HEMATOCRIT 35.6 % (42.0-52.0); HEMOGLOBIN 12.1 g/dL (14.0-18.0); MEAN CORPUSCULAR HEMOGLOBIN 28.5 PG (27-31); MEAN CORPUSCULAR VOLUME 83.8 FL (80-90); RED BLOOD COUNT 4.25 10^6/uL (4.70-6.10)
[2017-04-15 08:11] LABS: BASOPHILS # (AUTO) 0.02 10*3/UL; BASOPHILS % (AUTO) 0.4 % (0-1); EOSINOPHILS # (AUTO) 0.16 10*3/UL; EOSINOPHILS % (AUTO) 3.2 % (0-8); LYMPHOCYTES # (AUTO) 1.38 10*3/uL; MEAN PLATELET VOLUME 9.5 FL (7.4-12.2); MONOCYTES # (AUTO) 0.29 10*3/UL (0.3-0.8); MONOCYTES % (AUTO) 5.7 % (5-15); NEUTROPHILS # (AUTO) 3.19 10*3/UL; NEUTROPHILS % (AUTO) 62.9 % (50-80); PLATELET MORPHOLOGY COMMENT NORMAL MORPHOLOGY (NORM); RBC MORPHOLOGY COMMENT NORMAL MORPHOLOGY (NORM); WBC MORPHOLOGY COMMENT NORMAL MORPHOLOGY (NORM)
[2017-04-15 08:19] LABS: HEMOGLOBIN A1C 11.03 % (4.2-6.0)
== END ==
LOC: LAB 07:14
PROVIDERS: ATTEND Internal Medicine
DX: E11.9 Type 2 diabetes mellitus without complications (principal); Z79.4 Long term (current) use of insulin; E78.5 Hyperlipidemia, unspecified; E27.9 Disorder of adrenal gland, unspecified; M96.1 Postlaminectomy syndrome, not elsewhere classified; I10 Essential (primary) hypertension; N40.1 Benign prostatic hyperplasia with lower urinary tract symptoms; Z12.5 Encounter for screening for malignant neoplasm of prostate; Z95.1 Presence of aortocoronary bypass graft
CPT/HCPCS: 36415; 80053; 80061; 82043; 82550; 83036; 84443; 85025; G0103; 99215

== ENCOUNTER → 2017-04-21 | Outpatient (CLI) | payer OTHER, BC ==
--- NOTE | 2017-04-21 11:02 | DI ---
CT ABDOMEN W/WO CONTRAST,04/21/2017 8:46 AM: Clinical History: Right sided adrenal mass. Previous Exam: September 13, 2009 Findings: Multiple helically acquired CT images are obtained through the abdomen following an adrenal protocol. Images are obtained both before and after the administration of intravenous contrast. There is a right adrenal adenoma measuring 18 mm in diameter. This measures 10 Hounsfield units, whic h is consistent with a lipid rich adenoma. Contrast-enhanced images demonstrate enhancement of 26 Hounsfield units. 15 minute washout measured 1 2 Hounsfield units. This is a washout of 86% and a relative washout of 53%. Peripheral vascular calcifications are seen. There is no hydronephrosis nor nephrolithiasis. The gallbladder is unremarkable. The lung bases are clear. Degenerative changes of the spine are also noted to include laminectomies of the lower lumbar spine. Posterior transpedicular fusion and interbody fusion is seen at L4/5 and L5/S1. 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 This is a benign finding and r emains unchanged since 2008.
== END ==
LOC: CT 08:42
PROVIDERS: ATTEND Internal Medicine
DX: E27.9 Disorder of adrenal gland, unspecified (principal)
CPT/HCPCS: 74170